=== PATIENT | male | born 1955 | race Caucasian/White ===

== ENCOUNTER 2018-12-19 09:18 | Day surgery (SDC) | payer OTHER ==
[~2018-12-19] VITALS: Ht 162.6 cm; Wt 77.5 kg
[~2018-12-19 09:18] MED LIST: GLIPIZIDE PO; METFORMIN PO
[2018-12-19] MEDS ORDERED: ATORVASTATIN (09:58)
[2018-12-19] MEDS ORDERED: ASPIRIN (09:58)
[2018-12-19 09:59] VITALS: Ht 162.6 cm; Wt 77.5 kg
[2018-12-19 11:00] VITALS: BP_SYST 155; BP_SYST 193; BP_DIAS 83; BP_DIAS 99; PULSE 68; RESP 22
[2018-12-19] MEDS ORDERED: FENTAnyl 50 MCG/ML VIAL ONE (11:45)
[2018-12-19] MEDS ORDERED: MIDAZOLAM 1 MG/ML 2 ML INJ ONE ×2 (11:45)
--- NOTE | 2018-12-19 19:52 | CONS ---
DATE OF ADMISSION: 12/19/2018 DATE OF CONSULTATION: PATIENT NAME: AIXA SOMERS TYPE OF CONSULTATION: Preoperative gastroenterology. Dear Dr. De: I thank you very much for this kind referral. HISTORY OF PRESENT ILLNESS: Mr. Franco Somers is a 63-year-old male patient who has been referred to me for further evaluation of change in the bowel habit. The patient has history of colon polyp and h e needs screening colonoscopy. His appetite has been good and he is not losing any weight. No upper abdominal pain, nausea or vomiting. He is on baby aspirin a day. No history of gallstones or liver disease. Not a hypertensive. PAST MEDICAL HISTORY: He has diabetes. No heart disease, lung problem or kidney disease. Has hyper lipidemia. SOCIAL HISTORY: Nonsmoker. No alcohol abuse. FAMILY HISTORY: No family history of gastrointestinal tract neoplasm. ALLERGIES: NO DRUG ALLERGIES. MEDICATIONS: 1. Glipizide. 2. Metformin. 3. Atorvastatin. 4. Aspirin 81 mg. PHYSICAL EXAMINATION: VITAL SIGNS: He is 5 feet, 3 inches tall and weighs 170 pounds. HEART: Normal heart sounds. LUNGS: Clear. ABDOMEN: Soft. No masses. Normal bowel sounds. NEUROLOGIC: Normal. IMPRESSION: 1. Change in the bowel habit. 2. History of colon polyps. 3. The patient needs screening colonoscopy. 4. Diabetes mellitus. 5. Hyperlipidemia. PLAN: Screening colonoscopy. The procedure and possible complications are well explained to the patient. He understands and conse nts to the procedure. I thank you once again. With warmest personal regards, Dictated By: JAMIN WHALEY/MICKI Conf#: [id number] DID#: [id number]
== END 2018-12-19 14:29 | disposition home or self-care (01) ==
LOC: GIL 09:18
PROVIDERS: ATTEND Internal Medicine Gastroenterology
DX: Z12.11 Encounter for screening for malignant neoplasm of colon (principal); K64.8 Other hemorrhoids; D12.3 Benign neoplasm of transverse colon; E11.9 Type 2 diabetes mellitus without complications; E78.5 Hyperlipidemia, unspecified; Z79.82 Long term (current) use of aspirin; Z79.84 Long term (current) use of oral hypoglycemic drugs
CPT/HCPCS: 45380; 82962; J2250; J3010; Z7610; 88305